=== PATIENT | male | born 1960 | race Caucasian/White ===

== ENCOUNTER 2024-03-15 02:56 | Emergency (ER) | payer BC, MEDICARE ==
[~2024-03-15] VITALS: Ht 185.4 cm; Wt 110.8 kg
[2024-03-15 05:11] LABS: BASO # 0.1 10^3/uL (0.0-0.2); BASO % 0.6 % (0.0-1.0); EOS # 0.3 10^3/uL (0.0-0.5); EOS % 3.1 % (0.0-3.0); HEMATOCRIT 38.4 % (42.0-52.0); HEMOGLOBIN 13.6 g/dl (13.5-17.5); LYMPH # 0.8 10^3/uL (1.5-5.0); LYMPH % 10.4 % (24.0-44.0); MEAN CORPUSCULAR HGB CONC 35.4 g/dl (32.0-36.5); MEAN CORPUSCULAR VOLUME 87.5 fl (80.0-96.0); MONO # 0.7 10^3/uL (0.0-0.8); MONO % 8.4 % (2.0-8.0); NEUTROPHILS # 6.2 10^3/uL (1.5-8.5); NEUTROPHILS % 77.3 % (36.0-66.0); PLATELET COUNT, AUTOMATED 218 10^3/uL (150-450); RED BLOOD COUNT 4.39 10^6/uL (4.30-6.10); WHITE BLOOD COUNT 8.1 10^3/uL (4.0-10.0)
[2024-03-15 05:32] LABS: LIPASE 42 U/L (12-53)
[2024-03-15 05:35] LABS: ALKALINE PHOSPHATASE 79 U/L (46-116); ALT/SGPT 24 U/L (7.0-40); AST/SGOT 15 U/L (<34); BILIRUBIN,DIRECT 0.2 MG/DL (<0.4); BILIRUBIN,TOTAL 0.5 MG/DL (0.3-1.2); BLOOD UREA NITROGEN 33 MG/DL (9-23); CARBON DIOXIDE LEVEL 26 MMOL/L (20-31); CHLORIDE LEVEL 104 MMOL/L (98-107); CREATININE FOR GFR 0.97 MG/DL (0.70-1.30); GLOMERULAR FILTRATION RATE > 60.0 (>49); GLUCOSE, FASTING 127 MG/DL (74-106); POTASSIUM SERUM 3.7 MMOL/L (3.5-5.1); SODIUM LEVEL 137 MMOL/L (136-145); TOTAL PROTEIN 6.7 G/DL (5.7-8.2)
[2024-03-15] MEDS: MORPHINE 4 MG/ML 1ML VIAL IV ONE (06:56)
[2024-03-15] MEDS: ONDANSETRON 4MG 2ML VIAL IV ONE (06:56)
[2024-03-15] MEDS ORDERED: LOSA100T46 (07:48)
[2024-03-15] MEDS ORDERED: ATOR1TAB21 (07:48)
[2024-03-15] MEDS ORDERED: METO100T5 (07:48)
[2024-03-15] MEDS ORDERED: CLOP75TA2 (07:48)
[2024-03-15] MEDS ORDERED: AMLO1TAB24 (07:48)
[2024-03-15] MEDS ORDERED: ASPI81CH33 PO (07:48)
[2024-03-15] MEDS ORDERED: LOPI600T (07:48)
[2024-03-15] MEDS ORDERED: CHLO125TA (07:48)
[2024-03-15] MEDS ORDERED: HYDR-3713 PO (08:55)
[2024-03-15] MEDS ORDERED: AMOX875T2 PO (08:55)
[2024-03-15] MEDS ORDERED: ONDA-282 PO (08:55)
[2024-03-15 09:00] VITALS: BP 129/76; TEMP 96.8; O2SAT 97
== END 2024-03-15 09:23 | disposition home or self-care (01) ==
LOC: M ED 02:56
DX: K80.00 Calculus of gallbladder with acute cholecystitis without obstruction (principal); E11.9 Type 2 diabetes mellitus without complications; I10 Essential (primary) hypertension; K21.9 Gastro-esophageal reflux disease without esophagitis; E78.5 Hyperlipidemia, unspecified; Z95.5 Presence of coronary angioplasty implant and graft; Z79.82 Long term (current) use of aspirin; Z79.899 Other long term (current) drug therapy
CPT/HCPCS: 76705; 80048; 80076; 81001; 83690; 85025; 93041; 96374; 96375; 99284; J2405